=== PATIENT | male | born 1990 | race Caucasian/White ===

== ENCOUNTER 2023-04-01 22:48 | Emergency (ER) | payer OTHER, SELFPAY ==
[2023-04-01 23:02] VITALS: BP 109/95; PULSE 95; RESP 16; TEMP 36.2; O2SAT 96; BMI 23.5
--- NOTE | 2023-04-01 23:12 | ED.WOUNDLAC ---
HPI - Wound/Laceration General Chief Complaint: Laceration/Wound Stated Complaint: Cut middle finger with knife Time Seen by Provider: 04/01/23 23:06 History of Present Illness HPI narrative: This 32-year-old male comes in with a laceration to the left middle finger. He was fishing and accidentally cut his finger with a knife. This happened a couple hours prior to arrival. He has it bandaged and currently there is no bleeding. He has a 2 cm linear laceration on the side of the middle finger next to the index finger. He states that his tetanus status is up-to-date. Related Data Home Medications Medication Instructions Recorded Confirmed No Known Home Medications 02/21/22 02/21/22 Previous Rx's Medication Instructions Recorded amoxicillin 875 mg tablet 875 mg PO BID #20 tabs 02/21/22 ketorolac 10 mg tablet 10 mg PO QID PRN pain 5 days #20 02/21/22 tabs sulfamethoxazole 800 1 tab PO BID #20 tabs 02/21/22 mg-trimethoprim 160 mg tablet (Bactrim DS) Allergies Allergy/AdvReac Type Severity Reaction Status Date / Time vancomycin Allergy Severe Rash Verified 04/01/23 23:02 clindamycin Allergy Hives Verified 04/01/23 23:02 Review of Systems Status of ROS: Reports: 10 or more systems reviewed and unremarkable except as noted in History and below Narrative: Constitutional: No fevers, no weight gain or loss. Eyes: No discharge. No vision changes. HENT: No congestion, no sore throat, no ear pain. Cardiovascular: No chest pain, no palpitations. Respiratory: No shortness of breath, no wheezes, no cough. Gastrointestinal: No abdominal pain, no vomiting, no diarrhea. Genitourinary: No dysuria, no hematuria. Musculoskeletal: Normal range of motion. Skin: No rashes, no pruritis. Neurological: No dizziness, weakness, sensory change, speech change. Endo/Heme/Allergies: No bruising or bleeding. No polydipsia. Pysch: no suicidality, no anxiety, no insomnia. All other systems reviewed and are negative. [facility] Medical History No significant past medical history Social History Smoking Status: Current every day smoker What tobacco products do you use: cigarettes How often do you have a drink containing alcohol: never AUDIT-C Alcohol total score: 0 Non-prescribed substance use: marijuana (any form) Exam Narrative: Exam Narrative: Constitutional: Well-developed, well-nourished, no acute distress. HEENT: Normocephalic, atraumatic. Neck: Normal range of motion. Nontender. Supple. Heart: Intact distal pulses. Lungs: No chest discomfort. No wheezes, rhonchi, or rales. Abdomen: Nontender. Back: Normal range of motion. Extremities: Normal range of motion. 2 cm linear laceration in the distal portion of the left middle finger. The wound edges are nicely approximated. Skin: Intact. No rash. Warm. No erythema or pallor. Neurologic: No altered sensation. No weakness. Alert and oriented. Psychiatric: No suicidality. No anxiety or depression. No insomnia. Nursing notes and vitals signs are reviewed. Const: Vital Signs, click to edit/add: Vital Signs - 24 hr 04/01/23 23:02 Temperature 97.1 F L Pulse Rate [Right Pulse Oximeter] 95 Respiratory Rate 16 Blood Pressure [Ri ght Upper Arm] 109/95 H Pulse Oximetry 96 Oxygen Delivery Me thod Room Air Course Vital Signs Vital signs: Initial Vital Signs Temperature 97.1 F L 04/01/23 23:02 Temperature Source Temporal Artery Scan 04/01/23 23:02 Pulse Rate 95 04/01/23 23:02 Pulse Rhythm Regular 04/01/23 23:02 Respiratory Rate 16 04/01/23 23:02 Blood Pressure 109/95 H 04/01/23 23:02 Blood Pressure Mean 99 04/01/23 23:02 Blood Pressure Position Sitting 04/01/23 23:02 Pulse Oximetry 96 04/01/23 23:02 Oxygen Delivery Method Room Air 04/01/23 23:02 Vital Signs Temperature 97.1 F L 04/01/23 23:02 Pulse Rate 95 04/01/23 23:02 Respiratory Rate 16 04/01/23 23:02 Blood Pressure 109/95 H 04/01/23 23:02 Pulse Oximetry 96 04/01/23 23:02 Oxygen Delivery Method Room Air 04/01/23 23:02 Temperature 97.1 F L 04/01/23 23:02 Pulse Rate 95 04/01/23 23:02 Respiratory Rate 16 04/01/23 23:02 Blood Pressure 109/95 H 04/01/23 23:02 Pulse Oximetry 96 04/01/23 23:02 Oxygen Delivery Method Room Air 04/01/23 23:02 MDM - Wound/Laceration MDM Narrative Medical decision making narrative: This patient has a laceration to his left middle finger. The wound has been cleansed and the wound edges are nicely approximated. This wound is a good candidate for Dermabond repair. This was applied with excellent results. After the adhesive dried a Band-Aid was applied. Instructions were giving regarding wound care. Discharge Plan Discharge Clinical Impression: Laceration Patient Disposition: Home, Self-Care Condition: Stable Additional Instructions: Keep wound clean and dry. Wear a Band-Aid for the 1st few days to assist in wound repair. Follow up with MD or return if worsening. Prescriptions: No Action No Known Home Medications amoxicillin 875 mg tablet 875 mg PO BID Qty: 20 0RF sulfamethoxazole-trimethoprim [Bactrim DS] 800-160 mg tablet 1 tab PO BID Qty: 20 0RF ketorolac 10 mg tablet 10 mg PO QID MDD 4 PRN (Reason: pain) 5 Days Qty: 20 0RF Follow Up/Referrals: Provider,Not a Local [Primary Care Provider] - Stand Alone Forms: MyHealth Info Instructions
== END 2023-04-01 23:28 | disposition home or self-care (01) ==
LOC: ED 23:27
PROVIDERS: Emergency Provider Emergency Medicine Emergency Medical Services
DX: S61.213A Laceration without foreign body of left middle finger without damage to nail, initial encounter (principal); W26.0XXA Contact with knife, initial encounter
CPT/HCPCS: 12001; 99283; 99284